=== PATIENT | female | born 1985 | race Caucasian/White ===

== ENCOUNTER 2021-02-24 03:56 | Emergency (ER) | payer BC, SELFPAY ==
[2021-02-24 03:56] VITALS: BP 126/76; PULSE 89; RESP 16; TEMP 37.1; O2SAT 100; BMI 20.7
[2021-02-24 04:17] VITALS: BMI 21.4
[2021-02-24 04:24] LABS: Urine Pregnancy, HCG Qual. Positive (Negative)
--- NOTE | 2021-02-24 04:41 | US_ITS ---
PROCEDURE: US OB TRANSVAGINAL CLINICAL INDICATION: vaginal bleeding, +, unknown gestation More uCi acute COMPARISON: No exams were available for comparison FINDINGS: An intrauterine gestational sac is present with a pole with a crown-rump length of 2.1cm correlating to gestational age of 8weeks 6days. heart tones are present with an FHR of 151bpm. Yolk sac is noted. IMPRESSION: Live IUP at 8 weeks 6 days Estimated due date by Ultrasound is 09/30/2021 Dictated by: Donald Hoffman MD 02/24/2021 07:31 Donald Hoffman MD in [facility] 02/24/2021 07:31
--- NOTE | 2021-02-24 04:42 | PC.NURSE ---
Notified radiology of the need for transvag u/s. Call placed to on-call u/s tech
[2021-02-24 04:50] LABS: Microscopic, Urine URINE MICROSCOPIC (MICROSCOPIC)
[2021-02-24 04:56] LABS: Basophils % 0.5 % (0.1-2.0); Eosinophils # 0.1 K/mm3 (0.0-0.4); Eosinophils % 1.4 % (0.1-12.0); Hematocrit 39.6 % (37.0-47.0); Lymphocytes # 2.3 K/mm3 (0.7-4.5); Lymphocytes % 28.7 % (10-50); Mean Corpuscular HGB Conc 32.9 g/dL (31.8-35.4); Mean Corpuscular Hemoglobin 28.7 pg (27.0-31.2); Mean Corpuscular Volume 87.2 fl (81-99); Mean Platelet Volume 10.2 fl (7.4-10.4); Monocytes # 0.5 K/mm3 (0.1-1.0); Monocytes % 5.6 % (1.7-9.3); Neutrophils # 5.1 K/mm3 (1.8-7.8); Neutrophils % 63.7 % (37.0-80.0); Platelet Count 229 K/mm3 (142-424); Red Blood Count 4.54 M/mm3 (4.20-5.40); Red Cell Distribution Width 13.7 % (11.5-17.5); White Blood Count 7.9 K/mm3 (4.8-10.8)
[2021-02-24 04:57] LABS: Appearance,Urine CLEAR (Clear); Bilirubin,Urine Negative (Negative); Blood, Urine 1+ (Negative); Color,Urine YELLOW (Yellow); Glucose,Urine (UA) Negative (Negative); Ketones,Urine Negative (Negative); Leukocyte Esterase,Urine Negative (Negative); Nitrate,Urine Negative (Negative); Protein,Urine Negative (Negative); Specific Gravity, Urine 1.025 (1.005-1.030); Urobilinogen,Urine 0.2 EU/dl (0.2)
[2021-02-24 05:00] LABS: Alanine Aminotransferase 20 U/L (12-78); Albumin Level 4.5 g/dl (3.5-5.0); Albumin/Globulin Ratio 1.5 (1.1-1.8); Alkaline Phosphatase 47 U/L (38-126); Anion Gap 13.2 mEq/L (5-15); Aspartate Amino Transferase 25 U/L (14-36); Bilirubin,Total 0.2 mg/dl (0.2-1.3); Blood Urea Nitrogen 4 mg/dl (7-17); Calcium 9.6 mg/dl (8.4-10.2); Carbon Dioxide 28 mmol/L (22.0-30.0); Chloride 100 mmol/L (98-107); Creatinine Clearance Estimated 142 mL/min (50-200); Estimated Glomerular Filt Rate 141 ml/min (>60); GFR (African American) 171 ML/MIN (>60); Glucose 57 mg/dl (74-100); Potassium 3.2 mmoL/L (3.5-5.1); Sodium 138 mmol/L (136-145); Total Protein,Serum 7.5 g/dl (6.3-8.2)
[2021-02-24 05:05] LABS: C-Reactive Protein 7.6 mg/L (0-4)
[2021-02-24 05:08] LABS: Benzodiazepines Screen,Urine Positive ng/ml (<200)
[2021-02-24 05:09] LABS: Amphetamine/Metha Screen,Urine Negative ng/ml (<1000)
[2021-02-24 05:10] LABS: Barbiturates Screen,Urine Negative ng/ml (<200); Cannabinoid Screen,Urine Negative ng/ml (<50)
[2021-02-24 05:11] LABS: Cocaine Screen,Urine Positive ng/ml (<300)
[2021-02-24 05:12] LABS: Methadone Screen,Urine Positive ng/ml (<300); Opiate Screen,Urine Negative ng/ml (<300)
[2021-02-24 05:13] LABS: Phencyclidine Screen,Urine Negative ng/ml (<25)
[2021-02-24 05:23] LABS: Procalcitonin < 0.030 ng/mL (0.0-2.0)
--- NOTE | 2021-02-24 05:37 | PC.NURSE ---
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
[2021-02-24 05:38] LABS: Bacteria,Urine 1+ /lpf; Mucus,Urine 1+ /lpf; WBC,Urine Occasional #/hpf (0-3)
[2021-02-24 05:48] LABS: HCG Qualitative, Serum Positive (Negative)
--- NOTE | 2021-02-24 06:02 | PC.NURSE ---
u/s tech s/w Dr. Stout and pt is 8w 6d and heart beat is present.
--- NOTE | 2021-02-24 06:05 | [facility].EDMCLR ---
ED Disposition Clinical Impression: Medical clearance for incarceration, Vaginal bleeding affecting early Qualifiers: Weeks of gestation: 8 weeks Qualified Code(s): Z3A.08 - 8 weeks gestation of Disposition: Home, Self-Care Condition on Discharge: Good Instructions: DI for Vaginal Bleeding During Additional Instructions: see ob for follow up Referrals: Provider,Referral, [Primary Care Provider] - - Critical Care Critical Care Time: No Attestation: On 02/24/21, the high probability of a clinically significant, sudden or life threatening deterioration of the following system(s) required my full and direct attention, intervention and personal management. The time I documented below is in addition to time spent performing reported procedures but includes the following listed in this critical care notation. Medical Decision Making - Medical Records Medical records reviewed: Yes: I reviewed the patient's medical records. - Cesar Inquiry Pt receiving controlled substance: No Vital Signs: 02/24/21 03:56 Temperature 98.8 F Temperature Source Oral Pulse Rate [Left] 89 Respiratory Rate 16 Blood Pressure [Right Arm] 126/76 Blood Pressure Mean [Right Arm] 92 02 Sat by Pulse Oximetry 100 Oxygen Delivery Method Room Air - Lab Data Lab results reviewed: Yes: I reviewed the patient's lab results. Lab Results 02/24/21 04:11: Urine HCG, Qual Positive 02/24/21 04:20: Urine Color Yellow, Urine Appearance Clear, Urine pH 6.0, Ur Specific Sinclair 1.025, Urine Protein Negative, Urine Glucose (UA) Negative, Urine Ketones Negative, Urine Blood 1+, Urine Nitrate Negative, Urine Bilirubin Negative, Urine Urobilinogen 0.2, Ur Leukocyte Esterase Negative, Urine RBC 3-5, Urine WBC Occasional, Urine Bacteria 1+, Urine Mucus 1+ 02/24/21 04:20: Urine Opiates Screen Negative, Urine Methadone Screen Positive H, Ur Barbituates Screen Negative, Ur Phencyclidine Scrn Negative, Ur Amphetamines Screen Negative, U Benzodiazepines Scrn Positive H, Urine Cocaine Screen Positive H, U Marijuana (THC) Screen Negative 02/24/21 04:30: WBC 7.9, RBC 4.54, Hgb 13.0, Hct 39.6, MCV 87.2, MCH 28.7, MCHC 32.9, RDW 13.7, Plt Count 229, MPV 10.2, Neut % (Auto) 63.7, Lymph % (Auto) 28.7, [place] % (Auto) 5.6, Eos % (Auto) 1.4, Baso % (Auto) 0.5, Neut # (Auto) 5.1, Lymph # (Auto) 2.3, [place] # (Auto) 0.5, Eos # (Auto) 0.1, Baso # (Auto) 0.0 02/24/21 04:30: Sodium 138, Potassium 3.2 L, Chloride 100, Carbon Dioxide 28, Anion Gap 13.2, BUN 4 L, Creatinine 0.50 L, Estimated Creat Clear 142, Estimated GFR 141, Est GFR ( Amer) 171, Glucose 57 L, Calcium 9.6, Total Bilirubin 0.2, AST 25, ALT 20, Alkaline Phosphatase 47, C-Reactive Protein 7.6 H, Total Protein 7.5, Albumin 4.5, Globulin 3.0, Albumin/Globulin Ratio 1.5, Procalcitonin < 0.030 02/24/21 04:30: Serum HCG, Qual Positive 02/24/21 04:30: Blood Type O Positive Result diagrams: 02/24/21 04:30 02/24/21 04:30 Orders (Tests/Meds): ED MEDICATIONS Generic Name Dose Route Start Last Admin Trade Name Freq PRN Reason Stop Dose Admin Sodium Chloride 1,000 mls @ 999 mls/hr 02/24/21 04:45 02/24/21 04:44 Sod Chlor 0.9% 1000ml Bag IV 02/24/21 05:45 999 mls/hr .[id number] ANEL Administration ORDERS Category Date Time Status US transvaginal Stat Exams 02/24/21 04:41 Ordered Complete Blood Count Auto Diff Stat Lab 02/24/21 04:30 Results Erythrocyte Sedimentation Rate Stat Lab 02/24/21 04:30 Results - US Data US Images: Pelvis (8 weeks iup) Medical Decision Narrative: o positive and iup and stable for medical clearence Medical Clearance HPI - General Chief complaint: Medical Clearance Stated complaint: medical clearance Time Seen by Provider: 02/24/21 06:00 Mode of Arrival: Ambulatory Source of Information: Patient, Medical Record Limitations: No Limitations Description of Symptoms (Recalled from ER Triage Doc. by RN): pt here for medi
[2021-02-24 06:13] VITALS: BP 116/62; PULSE 78; RESP 17; TEMP 36.8; O2SAT 99
[2021-02-24 06:17] LABS: Erythrocyte Sedimentation Rate 22 mm/hr (0-20)
[2021-02-24 06:59] LABS: HCG,Quantitative 305010 mIU/ml (0-5.42)
== END 2021-02-24 06:18 | disposition home or self-care (01) ==
PROVIDERS: Emergency Provider Emergency Medicine
DX: O20.9 Hemorrhage in early pregnancy, unspecified (principal); F15.10 Other stimulant abuse, uncomplicated; Z3A.08 8 weeks gestation of pregnancy
CPT/HCPCS: 76817; 80053; 80305; 81001; 81025; 84145; 84702; 84703; 85025; 85651; 86140; 86900; 86901; 96365; 99284